=== PATIENT | male | born 1990 | race Caucasian/White ===

== ENCOUNTER → 2017-04-01 | Outpatient (CLI) | payer OTHER | END | disposition disaster alternative care site (69) | LOC: GRAD 11:36 | DX: M25.551 Pain in right hip (principal); M25.552 Pain in left hip; M79.662 Pain in left lower leg; M70.62 Trochanteric bursitis, left hip; M70.61 Trochanteric bursitis, right hip; R20.9 Unspecified disturbances of skin sensation | CPT/HCPCS: A9503 ==